=== PATIENT | female | born 1990 | race Caucasian/White ===

== ENCOUNTER 2019-07-05 14:50 | Emergency (ER) | payer BC, OTHER ==
[2019-07-05] MEDS ORDERED: Diphtheria,Pertussis(Acell),Tetanus Vaccine 0.5 ML Syringe IM ONE (15:33)
[2019-07-05] MEDS ORDERED: Amoxicillin/Clavulanate K 875-125 MG Tab PO ONE (15:35)
--- NOTE | 2019-07-05 15:36 | EDM.PDOC ---
ED HPI GENERAL MEDICAL PROBLEM - General Chief Complaint: Body Fluid Exposure Stated Complaint: BITE FROM RESIDENT Time Seen by Provider: 07/05/19 14:57 Source of Information: Reports: Patient, RN Notes Reviewed History Limitations: Reports: No Limitations - History of Present Illness INITIAL COMMENTS - FREE TEXT/NARRATIVE: Patient is a 28-year-old female who presents to the ED for evaluation of a bite from a longterm resident. Patient works at [email or web address], and was bit on her right hand by a resident she was working with at around 7:40 this morning. She states that this did break the skin and bleed initially, she put antibiotic cream and a bandage on it, but her packing and wrapping supervisor directed her to go to the ER for further treatment and testing of the wound. Patient was not made aware that the resident had any sort of communicable diseases like hepatitis or HIV. The patient's boss states however that she should be checked. The patient does not have any sudden numbness or tingling distal to the bite, she has good range of motion in the hand. - Related Data Allergies Allergy/AdvReac Type Severity Reaction Status Date / Time No Known Allergies Allergy Verified 07/05/19 14:58 Home Meds: Home Meds Amoxicillin/Clavulanate K [Augmentin 875-125 MG] 1 tab PO BID #13 tablet [Rx] Past Medical History - Past Surgical History HEENT Surgical History: Reports: Adenoidectomy, Tonsillectomy Social & Family History - Tobacco Use Smoking Status *Q: Current Every Day Smoker Years of Tobacco use: 14 Packs/Tins Daily: 0.5 - Caffeine Use Caffeine Use: Reports: Soda, Tea - Recreational Drug Use Recreational Drug Use: No ED ROS GENERAL - Review of Systems Review Of Systems: See Below Constitutional: Reports: No Symptoms HEENT: Reports: No Symptoms Respiratory: Reports: No Symptoms Cardiovascular: Reports: No Symptoms Endocrine: Reports: No Symptoms GI/Abdominal: Reports: No Symptoms : Reports: No Symptoms Musculoskeletal: Reports: No Symptoms Skin: Reports: Wound (5mm wound noted to MCP of 2nd digit. No active bleeding.) Neurological: Reports: No Symptoms Psychiatric: Reports: No Symptoms Hematologic/Lymphatic: Reports: No Symptoms Immunologic: Reports: No Symptoms ED EXAM, GENERAL - Physical Exam Exam: See Below Exam Limited By: No Limitations General Appearance: Alert, WD/WN, No Apparent Distress Throat/Mouth: Normal Inspection, Normal Lips, Normal Teeth, Normal Gums, Normal Oropharynx, Normal Voice, No Airway Compromise Head: Atraumatic, Normocephalic Neck: Normal Inspection Respiratory/Chest: No Respiratory Distress, Lungs Clear, Normal Breath Sounds, No Accessory Muscle Use, Chest Non-Tender Cardiovascular: Normal Peripheral Pulses, Regular Rate, Rhythm, No Murmur Peripheral Pulses: 3+: Radial (L), Radial (R) GI/Abdominal: Normal Bowel Sounds, Soft, Non-Tender, No Distention, No Mass Extremities: Normal Inspection, Normal Capillary Refill Neurological: Alert, Oriented, Normal Cognition, No Motor/Sensory Deficits Psychiatric: Normal Affect, Normal Mood Skin Exam: Warm, Dry, Normal Color, No Rash, Wound/Incision (5mm wound noted to MCP of 2nd digit. No active bleeding.) Course - Vital Signs Last Recorded V/S: Last Vital Signs Temp 97.4 F 07/05/19 14:55 Pulse 102 H 07/05/19 14:55 Resp BP 135/95 H 07/05/19 14:55 Pulse Ox 98 07/05/19 14:55 - Orders/Labs/Meds Orders: Active Orders 24 hr Category Date Time Status Vaccines to be Administered [RC] PER UNIT ROUTINE Care 07/05/19 15:33 Active Labs: Laboratory Tests 07/05/19 07/05/19 Range/Units 15:50 15:50 Hep Bs Antigen Nonreactive (NONREACTIVE) Hepatitis C Antibody Negative (NEGATIVE) HIV-1 Ab Rapid Screen Negative (NEGATIVE) Meds: Medications Discontinued Medications Generic Name Dose Route Start Last Admin Trade Name Peace PRN Reason Stop Dose Admin Amoxicillin/Clavulanate Potassium 1 tab 07/05/19 15:35 07/05/19 16:09 Augmentin 875 Mg/125 Mg PO 07/05/19 15:36 1 tab ONETIME ONE Administration Diphtheria/Tetanus/Acell Pertussis 0.5 ml 07/05/19 15:33 07/05/19 16:06 Adacel IM 07/05/19 15:34 0.5 ml .ONCE ONE Administration - Re-Assessments/Exams Free Text/Narrative Re-Assessment/Exam: 07/05/19 15:56 Patient resents to the ED for evaluation of a human bite wounds. She was directed by her boss to be evaluated for hepatitis and otherwise. I did order hep C, hep B testing, and HIV testing to be done today, however she will likely need to have these repeated in a short amount of time to make sure that these are in fact negative. She was not sure of her tetanus booster, so I did update this and give her her first tablet of Augmentin for management today. Patient will have the rest of the antibiotic sent to clinic pharmacy per her choosing, she may pick these up tomorrow and start taking them as directed. 07/05/19 17:37 HIV and hep C are back and are negative. Hep B is still pending. 07/06/19 16:26 Hep B surface antigen was nonreactive. I will call the patient with results. Departure - Departure Time of Disposition: 17:38 Disposition: Home, Self-Care 01 Condition: Fair Clinical Impression: Human bite causing injury Qualifiers: Encounter type: initial encounter Qualified Code(s): W50.3XXA - Accidental bite by another person, initial encounter - Discharge Information *PRESCRIPTION DRUG MONITORING PROGRAM REVIEWED*: No *COPY OF PRESCRIPTION DRUG MONITORING REPORT IN PATIENT LEYDA: No Prescriptions: Amoxicillin/Clavulanate K [Augmentin 875-125 MG] 1 tab PO BID #13 tablet Instructions: Body Fluid Exposure Information, Human Bite, [id number] Referrals: PCP,None [Primary Care Provider] - Forms: ED Department Discharge Additional Instructions: You were evaluated in the ER today for the bite sustained from a resident at your job. You were started on a course of antibiotics, Augmentin, please take one tab twice a day for the next 7 days, or until gone. These were electronically prescribed to the clinic pharmacy per your choosing. Augmentin is known to cause diarrhea. Please start taking a probiotic while on this medication. Your laboratory evaluation today involved hepatitis C, hepatitis B, and HIV testing. The hepatitis C and HIV were both negative at today's visit, the hep B is still pending, and this will be run tomorrow, you will be called and made notified of the results when this test has been run. I have a high suspicion that this will also be negative. Recommend that you repeat testing in a few months time with your primary care physician, or occupational health through your job. Please return to the ED if your symptoms change or worsen. - My Orders Last 24 Hours: My Active Orders 07/05/19 15:33 Vaccines to be Administered [RC] PER UNIT ROUTINE - Assessment/Plan Last 24 Hours: My Active Orders 07/05/19 15:33 Vaccines to be Administered [RC] PER UNIT ROUTINE
== END 2019-07-05 18:00 | disposition home or self-care (01) ==
LOC: JD.ED 14:50
DX: S61.451A Open bite of right hand, initial encounter (principal); F17.210 Nicotine dependence, cigarettes, uncomplicated; Z23 Encounter for immunization; W50.3XXA Accidental bite by another person, initial encounter; Y93.89 Activity, other specified; Y92.129 Unspecified place in nursing home as the place of occurrence of the external cause; Y99.0 Civilian activity done for income or pay
CPT/HCPCS: 36415; 86803; 87340; 87449; 90471; 90700; 99283; A9270; G0433

== ENCOUNTER 2019-12-30 09:46 | Emergency (ER) | payer BC, OTHER ==
--- NOTE | 2019-12-30 11:30 | EDM.PDOC ---
ED HPI GENERAL MEDICAL PROBLEM - General Chief Complaint: Respiratory Problem Stated Complaint: SOB,COUGH, SHARP PAIN IN CHEST WHEN COUGHS Time Seen by Provider: 12/30/19 11:11 Source of Information: Reports: Patient History Limitations: Reports: No Limitations - History of Present Illness INITIAL COMMENTS - FREE TEXT/NARRATIVE: Patient is a 29-year-old female who presents with complaints of cough, chills, and shortness of breath. She states the cough began about 3 days ago. She has had chills intermittently but no known fever. She was started to become slightly short of breath today. She has no underlying lung condition such as asthma. Patient works in a custodial facility. She denies any nausea, vomiting, or diarrhea. Chest Pain Score (Numeric/FACES): 8 - Related Data Allergies Allergy/AdvReac Type Severity Reaction Status Date / Time No Known Allergies Allergy Verified 12/30/19 10:13 Home Meds: Home Meds Albuterol [Ventolin HFA] 2 puff .XX Q4H PRN #1 inhaler 12/30/19 [Rx] Codeine Phosphate/Guaifenesin [Guaifen-Codeine 100-10 mg/5 ml] 10 ml PO Q4H PRN #150 ml 12/30/19 [Rx] Norethindrone-E.estradiol-Iron [Junel Fe 1 MG-20 MCG] 1 tab PO DAILY 12/30/19 [ History] Past Medical History - Past Surgical History HEENT Surgical History: Reports: Adenoidectomy, Tonsillectomy Social & Family History - Tobacco Use Smoking Status *Q: Current Every Day Smoker Years of Tobacco use: 15 Packs/Tins Daily: 0.5 - Caffeine Use Caffeine Use: Reports: Soda, Tea - Recreational Drug Use Recreational Drug Use: No ED ROS GENERAL - Review of Systems Review Of Systems: Comprehensive ROS is negative, except as noted in HPI. ED EXAM, GENERAL - Physical Exam Exam: See Below Exam Limited By: No Limitations General Appearance: Alert, WD/WN, No Apparent Distress Respiratory/Chest: No Respiratory Distress, Lungs Clear, Normal Breath Sounds, No Accessory Muscle Use, Chest Non-Tender Cardiovascular: Normal Peripheral Pulses, Regular Rate, Rhythm, No Edema, No Gallop, No JVD, No Murmur, No Rub Neurological: Alert, Oriented, CN II-XII Intact, Normal Cognition, Normal Gait, Normal Reflexes, No Motor/Sensory Deficits Psychiatric: Normal Affect, Normal Mood Skin Exam: Warm, Dry, Intact, Normal Color, No Rash Course - Vital Signs Last Recorded V/S: Last Vital Signs Temp 97.8 F 12/30/19 10:11 Pulse 88 12/30/19 10:11 Resp 18 12/30/19 10:11 BP 112/92 H 12/30/19 10:11 Pulse Ox 100 12/30/19 10:11 - Orders/Labs/Meds Orders: Active Orders 24 hr Category Date Time Status CORONAVIRUS COVID-19 PCR PHL [REF] Stat Lab 12/30/19 12:00 Received - Re-Assessments/Exams Free Text/Narrative Re-Assessment/Exam: 12/30/19 11:27 Chest x-ray was normal. Oxygen saturations have been 98 to 100% on room air. Lung sounds are clear. We will swab the patient for coronavirus today. We will discharge her home with an albuterol inhaler as well as cough syrup. Recommended no work until symptom free for 3 days. Educated to return to ER as needed. Discharge instructions as documented. Departure - Departure Time of Disposition: 11:28 Disposition: Home, Self-Care 01 Condition: Fair Clinical Impression: Viral respiratory infection - Discharge Information *PRESCRIPTION DRUG MONITORING PROGRAM REVIEWED*: No *COPY OF PRESCRIPTION DRUG MONITORING REPORT IN PATIENT LEYDA: No Prescriptions: Albuterol [Ventolin HFA] 2 puff .XX Q4H PRN #1 inhaler PRN Reason: Shortness Of Breath Codeine Phosphate/Guaifenesin [Guaifen-Codeine 100-10 mg/5 ml] 10 ml PO Q4H PRN #150 ml PRN Reason: Cough Instructions: Viral Respiratory Infection, [id number] Referrals: PCP,None [Primary Care Provider] - Forms: ED Department Discharge, ED Return to Work/School Form Additional Instructions: You were seen in the emergency department today for cough, chills, shortness of breath. Chest x-ray was completed and was negative for any signs of pneumonia. Your oxygen saturations were 98 to 100% while in the emergency department which is very good. You have been swabbed for the coronavirus today. You will be notified when these results are available. Recommend that you go home and self quarantine until you have been symptom-free for 3 days, regardless of what the results of the coronavirus test show. A prescription for an albuterol inhaler and cough syrup has been sent to clinic pharmacy. Uses medications as prescribed. Recommend that you rest and increase your fluid intake. If your symptoms should worsen, please not hesitate to return to the emergency department. Sepsis Event Note - Evaluation Sepsis Screening Result: No Definite Risk - Focused Exam Vital Signs: Vital Signs Temp Pulse Resp BP Pulse Ox 12/30/19 10:11 97.8 F 88 18 112/92 H 100 Date Exam was Performed: 12/30/19 Time Exam was Performed: 19:26 - My Orders Last 24 Hours: My Active Orders 12/30/19 12:00 CORONAVIRUS COVID-19 PCR PHL [REF] Stat - Assessment/Plan Last 24 Hours: My Active Orders 12/30/19 12:00 CORONAVIRUS COVID-19 PCR PHL [REF] Stat
--- NOTE | 2019-12-30 11:35 | CR ---
Chest: Portable view of the chest was obtained. Comparison: No prior chest imaging is available. Heart size and mediastinum are normal. Lungs are clear with no acute parenchymal change. Bony structures are grossly intact. Impression: 1. Nothing acute is appreciated on portable chest x-ray. Diagnostic code #1 This report was dictated in MDT
== END 2019-12-30 12:20 | disposition home or self-care (01) ==
LOC: JD.ED 09:46
DX: J98.8 Other specified respiratory disorders (principal); F17.210 Nicotine dependence, cigarettes, uncomplicated
CPT/HCPCS: 36415; 71045; 71045-26; 99283; 99285-25; U0002

== ENCOUNTER 2020-01-06 18:43 | Emergency (ER) | payer BC ==
--- NOTE | 2020-01-06 19:07 | EDM.PDOC ---
ED HPI GENERAL MEDICAL PROBLEM - General Chief Complaint: Respiratory Problem Stated Complaint: COUGH,SOB,FEELS COLD Time Seen by Provider: 01/06/20 19:00 Source of Information: Reports: Patient History Limitations: Reports: No Limitations - History of Present Illness INITIAL COMMENTS - FREE TEXT/NARRATIVE: TRIAGE NOTE -- Pt. here for dyspnea and chills. Started last saturday and had tested which came back negative. Has a dry cough. No fever. As above. Was seen 1 week ago with similar symptoms. Coronavirus test was negative. She has continued to have a cough and feel unwell. There has been no sputum. No fever. 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 She has not taken any medication to moderate symptoms as far as we can tell. Risk factor is cigarette smoking but she has not felt like smoking in recent days. Chest Pain Score (Numeric/FACES): 5 - Related Data Allergies Allergy/AdvReac Type Severity Reaction Status Date / Time No Known Allergies Allergy Verified 01/06/20 18:56 Home Meds: Home Meds Codeine Phosphate/Guaifenesin [Guaifen-Codeine 100-10 mg/5 ml] 10 ml PO Q4H PRN #150 ml 12/30/19 [Rx] Norethindrone-E.estradiol-Iron [Junel Fe 1 MG-20 MCG] 1 tab PO DAILY 12/30/19 [ History] Albuterol [Ventolin HFA] 2 puff INH Q4H PRN 01/06/20 [History] Past Medical History - Past Surgical History HEENT Surgical History: Reports: Adenoidectomy, Tonsillectomy Social & Family History - Tobacco Use Smoking Status *Q: Current Every Day Smoker Years of Tobacco use: 15 Packs/Tins Daily: 0.5 - Caffeine Use Caffeine Use: Reports: Soda - Recreational Drug Use Recreational Drug Use: No ED ROS GENERAL - Review of Systems Review Of Systems: Comprehensive ROS is negative, except as noted in HPI. ED EXAM, GENERAL - Physical Exam Exam: See Below Exam Limited By: No Limitations General Appearance: Alert, WD/WN, No Apparent Distress Eye Exam: Bilateral Eye: EOMI, PERRL Ears: Normal External Exam Nose: Normal Inspection Throat/Mouth: Normal Inspection Head: Atraumatic, Normocephalic Neck: Supple, Non-Tender Respiratory/Chest: No Respiratory Distress, Lungs Clear, Normal Breath Sounds, No Accessory Muscle Use Cardiovascular: Regular Rate, Rhythm GI/Abdominal: Soft, Non-Tender Back Exam: Normal Inspection Extremities: Normal Inspection Neurological: Alert, Oriented Psychiatric: Normal Affect Skin Exam: Warm, Dry Lymphatic: No Adenopathy Course - Vital Signs Last Recorded V/S: Last Vital Signs Temp 36.5 C 01/06/20 20:02 Pulse 100 01/06/20 20:02 Resp 18 01/06/20 20:02 BP 118/62 01/06/20 20:02 Pulse Ox 99 01/06/20 20:02 - Orders/Labs/Meds Labs: Laboratory Tests 01/06/20 Range/Units 20:00 Urine HCG, Qual Negative (NEGATIVE) - Re-Assessments/Exams Free Text/Narrative Re-Assessment/Exam: 01/06/20 21:59 The patient's physical exam is unremarkable. There has been no fever. Normal vital signs. Oxygen saturation 100% on room air. Chest x-ray is negative for any acute process. Same as a week ago. COVID test negative a week ago. Has no fever no point in repeating the test tonight. Patient obviously has a significant viral process at this point and needs to stay off work and not put others at risk. She may return to usual activities after she has been asymptomatic for 3 days. Patient was reassured. She needs not to expose others. Remain at home for the time being. Precautions for return to ER, fevers, worsening of symptoms, shortness of breath etc. Departure - Departure Time of Disposition: 22:04 Disposition: Home, Self-Care 01 Condition: Good Clinical Impression: Nonspecific syndrome suggestive of viral illness - Discharge Information Instructions: Viral Respiratory Infection, [id number] Referrals: PCP,None [Primary Care Provider] - Forms: ED Department Discharge Additional Instructions: Despite your troubling symptoms that brought you to the emergency department your physical exam is unremarkable. Chest x-ray does not show any evidence of an infiltrate or other acute process. Vital signs are all normal. Your blood oxygen level is completely normal. You do have a viral illness of some consequence and you should avoid exposing anyone until you have been asymptomatic for at least 3 days. You are to remain off work for the present time. Return to ER for any letitia fevers, worsening respiratory symptoms, letitia shortness of breath. Sepsis Event Note - Evaluation Sepsis Screening Result: No Definite Risk - Focused Exam Vital Signs: Vital Signs Temp Pulse Resp BP Pulse Ox 01/06/20 20:02 36.5 C 100 18 118/62 99 01/06/20 18:51 36.8 C 95 16 115/83 100 Date Exam was Performed: 01/06/20 Time Exam was Performed: 21:53
--- NOTE | 2020-01-06 21:32 | CR ---
Chest: Portable view of the chest was obtained. Comparison: Prior chest x-ray of 12/30/19. Heart size and mediastinum are normal. Lungs are clear with no acute parenchymal change. Bony structures are grossly intact. Impression: 1. Nothing acute is seen on portable chest x-ray. Diagnostic code #1 Study was dictated in MDT
== END 2020-01-06 22:21 | disposition home or self-care (01) ==
LOC: JD.ED 18:43
DX: B34.9 Viral infection, unspecified (principal); F17.210 Nicotine dependence, cigarettes, uncomplicated
CPT/HCPCS: 71045; 71045-26; 81025; 99282; 99285-25

== ENCOUNTER 2022-08-15 13:09 | Emergency (ER) | payer BC ==
[2022-08-15] MEDS ORDERED: Sodium Chloride 0.9% 1,000 ML IV ONE (14:30)
[2022-08-15] MEDS ORDERED: Ondansetron 4 MG in Sodium Chloride 0.9% 50 ML IV ONE (14:59)
[2022-08-15] MEDS ORDERED: Ondansetron 4 MG/2 ML SDV ONE (15:08)
[2022-08-15] MEDS ORDERED: Ondansetron 4 MG/2 ML SDV IVPUSH ONE (15:17)
[2022-08-15 15:27] LABS: CORONAVIRUS COVID-19 NAA NEGATIVE (NEGATIVE)
== END 2022-08-15 18:44 | disposition home or self-care (01) ==
LOC: JD.ED 13:09
DX: R25.1 Tremor, unspecified (principal); B34.9 Viral infection, unspecified; F17.210 Nicotine dependence, cigarettes, uncomplicated; Z20.822 Contact with and (suspected) exposure to COVID-19
CPT/HCPCS: 0241U; 36415; 80053; 81003; 81025; 82947; 83690; 85025; 96361; 96374; 99284; J2405; J7030

== ENCOUNTER 2023-08-09 03:48 | Emergency (ER) | payer BC ==
[2023-08-09] MEDS ORDERED: Acetaminophen 325 MG Tab PO ONE (04:20)
== END 2023-08-09 05:52 | disposition home or self-care (01) ==
LOC: JD.ED 03:48
DX: S80.01XA Contusion of right knee, initial encounter (principal); X50.9XXA Other and unspecified overexertion or strenuous movements or postures, initial encounter; Z79.899 Other long term (current) drug therapy; Y92.511 Restaurant or cafe as the place of occurrence of the external cause
CPT/HCPCS: 73562; 99283; A9270; 99282

== ENCOUNTER 2023-12-11 11:15 | Emergency (ER) | payer BC ==
[2023-12-11] MEDS: Ondansetron 4 MG/2 ML SDV IVPUSH ONE (11:51)
[2023-12-11] MEDS: Ketorolac 30 MG/ML SDV IVPUSH ONE (11:51)
[2023-12-11] MEDS: Sodium Chloride 0.9% 10 ML Syringe FLUSH PRN (11:55)
[2023-12-11 12:00] LABS: BASOPHILS ABSOLUTE AUTO 0.1 K/mm3 (0.0-0.2); BASOPHILS PERCENT AUTO 0.5 % (0.0-1.0); EOSINOPHILS ABSOLUTE AUTO 0.3 K/mm3 (0.0-0.4); EOSINOPHILS PERCENT AUTO 2.4 % (0.0-6.0); HEMATOCRIT 40.3 % (37.0-47.0); HEMOGLOBIN 13.5 gm/dl (12.0-16.0); IMMATURE GRAN ABSOLUTE AUTO 0.03 K/mm3 (0.00-0.05); IMMATURE GRAN PERCENT AUTO 0.3 % (0.0-0.4); LYMPHOCYTES ABSOLUTE AUTO 3.1 K/mm3 (1.0-4.8); LYMPHOCYTES PERCENT AUTO 29.7 % (24.0-44.0); MEAN CORPUSCULAR HEMOGLOBIN 32.8 pg (28.0-32.0); MEAN CORPUSCULAR HGB CONC 33.5 g/dl (32.0-36.0); MEAN CORPUSCULAR VOLUME 98.1 fl (83.0-99.0); MEAN PLATELET VOLUME 9.6 fl (9.4-12.3); MONOCYTES ABSOLUTE AUTO 0.4 K/mm3 (0.0-0.8); MONOCYTES PERCENT AUTO 4.1 % (0.0-8.0); NEUTROPHILS ABSOLUTE AUTO 6.6 K/mm3 (1.8-7.7); PLATELET COUNT,PLT 346 K/mm3 (150-400); RED BLOOD CELL COUNT 4.11 M/mm3 (4.10-5.30); WHITE BLOOD CELL COUNT,WBC 10.49 K/mm3 (3.9-11.3)
[2023-12-11 12:24] LABS: ALBUMIN 3.7 g/dl (3.4-5.0); BILIRUBIN TOTAL 0.2 mg/dL (0.2-1.0); C-REACTIVE PROTEIN 1.48 mg/dL (<0.30); CALCIUM 8.9 mg/dL (8.5-10.1); CREATININE 0.9 mg/dL (0.55-1.02); EST CRCL DRUG DOSING (CG) 67.09 mL/min; PROTEIN TOTAL,TP 7.6 g/dl (6.4-8.2)
[2023-12-11] MEDS: Alum Hydrox/Mag Hydrox/Simeth 30 ML, Lidocaine 2% 15 ML PO ONE (12:33)
[2023-12-11 12:42] LABS: CORONAVIRUS COVID-19 NAA NEGATIVE (NEGATIVE); INFLUENZA A NAA NEGATIVE (NEGATIVE); RESPIRATORY SYNCYTIAL VIR NAA NEGATIVE (NEGATIVE)
[2023-12-11 13:01] LABS: ANION GAP 11.6 (5-15); POTASSIUM,K 3.6 mEq/L (3.5-5.1)
[2023-12-11] MEDS: Famotidine 20 MG/2 ML SDV IVPUSH ONE (13:26)
[2023-12-11] MEDS: Sucralfate Suspension 1 GM/10 ML Cup PO ONE (13:27)
[2023-12-11] MEDS: HYDROmorphone 0.5 MG/0.5 ML Syringe IVPUSH ONE (13:27)
[2023-12-11 13:45] LABS: APPEARANCE,URINE CLEAR (Clear); BILIRUBIN,URINE NEGATIVE (Negative); COLOR,URINE YELLOW (Yellow); GLUCOSE,URINE NEGATIVE (Negative); KETONES,URINE TRACE (Negative); LEUKOCYTE ESTERASE,URINE 2+ (Negative); NITRITE,URINE NEGATIVE (Negative); OCCULT BLOOD,URINE NEGATIVE (Negative); PH,URINE 6.5 (5.0-8.0); PROTEIN,URINE 1+ (Negative); UROBILINOGEN,URINE 0.2 (0.2-1.0)
[2023-12-11 13:59] LABS: BACTERIA,URINE MANY /hpf (FEW); MUCUS,URINE MANY /hpf (FEW); RBC,URINE 0-5 /hpf (0-5)
== END 2023-12-11 15:13 | disposition home or self-care (01) ==
LOC: JD.ED 11:15
DX: K21.9 Gastro-esophageal reflux disease without esophagitis (principal); F17.210 Nicotine dependence, cigarettes, uncomplicated; Z79.899 Other long term (current) drug therapy; Z86.19 Personal history of other infectious and parasitic diseases; Z86.16 Personal history of COVID-19
CPT/HCPCS: 0241U; 36415; 71046; 80053; 81001; 84484; 85025; 85379; 86140; 87086; 93005; 96374; 96375; 99285; A9270; J1170; J1885; J2405; J3490; 93010; 99284

== ENCOUNTER 2024-02-26 11:28 | Emergency (ER) | payer BC ==
[2024-02-26] MEDS: Ketorolac 30 MG/ML SDV IM ONE (12:28)
[2024-02-26] MEDS: Acetaminophen 325 MG Tab PO ONE (14:21)
== END 2024-02-26 14:20 | disposition home or self-care (01) ==
LOC: JD.ED 11:28
DX: T74.91XA Unspecified adult maltreatment, confirmed, initial encounter (principal); S02.2XXA Fracture of nasal bones, initial encounter for closed fracture; S09.90XA Unspecified injury of head, initial encounter; F17.210 Nicotine dependence, cigarettes, uncomplicated; Z86.16 Personal history of COVID-19; Z79.899 Other long term (current) drug therapy; Y04.8XXA Assault by other bodily force, initial encounter
CPT/HCPCS: 70450; 70486; 71250; 72125; 72128; 72131; 96372; 99284; A9270; J1885

== ENCOUNTER 2025-03-30 23:23 | Emergency (ER) | payer BC ==
[2025-03-31] MEDS: Fluorescein 1 MG Ophth Strip EYELF ONE (01:06)
[2025-03-31] MEDS: Fluorescein 1 MG Ophth Strip ONE (01:06)
== END 2025-03-31 01:06 | disposition home or self-care (01) ==
LOC: JD.ED 23:23
DX: S05.02XA Injury of conjunctiva and corneal abrasion without foreign body, left eye, initial encounter (principal); F17.210 Nicotine dependence, cigarettes, uncomplicated; Z79.899 Other long term (current) drug therapy; Z86.16 Personal history of COVID-19; X58.XXXA Exposure to other specified factors, initial encounter; Y93.89 Activity, other specified
CPT/HCPCS: 99283; A9270; J3490

== ENCOUNTER 2025-04-02 16:32 | Inpatient (IN) | payer BC ==
[2025-04-02] MEDS ORDERED: Sodium Chloride 0.9% 10 ML Syringe FLUSH PRN (16:57)
[2025-04-02 17:03] LABS: BASOPHILS ABSOLUTE AUTO 0.0 K/mm3 (0.0-0.2); BASOPHILS PERCENT AUTO 0.4 % (0.0-1.0); EOSINOPHILS ABSOLUTE AUTO 0.1 K/mm3 (0.0-0.4); EOSINOPHILS PERCENT AUTO 1.6 % (0.0-6.0); IMMATURE GRAN ABSOLUTE AUTO 0.02 K/mm3 (0.00-0.05); IMMATURE GRAN PERCENT AUTO 0.3 % (0.0-0.4); LYMPHOCYTES ABSOLUTE AUTO 2.1 K/mm3 (1.0-4.8); LYMPHOCYTES PERCENT AUTO 28.2 % (24.0-44.0); MEAN PLATELET VOLUME 9.4 fl (9.4-12.3); MONOCYTES ABSOLUTE AUTO 0.4 K/mm3 (0.0-0.8); MONOCYTES PERCENT AUTO 4.9 % (0.0-8.0); NEUTROPHILS ABSOLUTE AUTO 4.7 K/mm3 (1.8-7.7); NEUTROPHILS PERCENT AUTO 64.6 % (41.0-71.0); NRBC ABSOLUTE 0.00 (0.00-0.02); NRBC PERCENT 0.0 % (0.0-0.2); PLATELET COUNT,PLT 246 K/mm3 (150-400); RED BLOOD CELL COUNT 4.52 M/mm3 (4.10-5.30); WHITE BLOOD CELL COUNT,WBC 7.31 K/mm3 (3.9-11.3)
[2025-04-02] MEDS: Ondansetron 4 MG/2 ML SDV IVPUSH ONE (17:05)
[2025-04-02] MEDS: fentaNYL 100 MCG/2 ML SDV IVPUSH ONE ×2 (17:05→17:31)
[2025-04-02] MEDS ORDERED: Naloxone 0.4 MG/ML SDV IVPUSH PRN ×3 (17:26→18:51)
[2025-04-02 17:30] LABS: A/G RATIO 1.3 (1-2); ASPARTATE AMNIOTRANSFERASE,AST 341 U/L (15-37); BILIRUBIN TOTAL 1.0 mg/dL (0.2-1.0); BLOOD UREA NITROGEN,BUN 8 mg/dL (7-18); CARBON DIOXIDE,CO2 26 mEq/L (21-32); CHLORIDE,CL 101 mEq/L (98-107); CREATININE 0.5 mg/dL (0.55-1.02); EST CRCL DRUG DOSING (CG) 115.13 mL/min; ESTIMATED GFR 126 mL/min (>60); GLUCOSE RANDOM 146 mg/dL (70-99); POTASSIUM,K 2.7 mEq/L (3.5-5.1); PROTEIN TOTAL,TP 7.3 g/dl (6.4-8.2); SODIUM,NA 137 mEq/L (136-145)
[2025-04-02 17:31] LABS: ALANINE AMINOTRANSFERASE,ALT 1302 U/L (14-59); HCG QUANTITATIVE < 1.0 mIU/mL
[2025-04-02] MEDS: Sodium Chloride 0.9% 10 ML Syringe FLUSH ONE (17:49)
[2025-04-02] MEDS: Iopamidol 612 MG/ML 100 ML Bottle IVPUSH ONE (17:49)
[2025-04-02] MEDS: diphenhydrAMINE 50 MG/ML SDV IVPUSH ONE (18:26)
[2025-04-02] MEDS ORDERED: Ondansetron 4 MG/2 ML SDV IVPUSH PRN (18:51)
[2025-04-02] MEDS ORDERED: LORazepam 2 MG/ML SDV IVPUSH PRN (18:53)
[2025-04-02 19:25] LABS: APPEARANCE,URINE CLEAR (Clear); GLUCOSE,URINE NEGATIVE (Negative); OCCULT BLOOD,URINE NEGATIVE (Negative)
[2025-04-02] MEDS: LORazepam 2 MG/ML SDV IVPUSH PRN (21:10)
[2025-04-02] MEDS: Magnesium Sulfat/D5W 1GM/100ML 1 GM in Premix Bag 1 BAG IV SCH (21:13)
[2025-04-03] MEDS ORDERED: Carboxymethylcellulose Sodium 1% Ophth Gel 15 ML Bottle EYEBOTH PRN ×2 (00:16→00:23)
[2025-04-03] MEDS: Carboxymethylcellulose Sodium 1% Ophth Gel 15 ML Bottle EYEBOTH PRN (00:57)
[2025-04-03 05:52] LABS: BASOPHILS ABSOLUTE AUTO 0.0 K/mm3 (0.0-0.2); BASOPHILS PERCENT AUTO 0.5 % (0.0-1.0); EOSINOPHILS ABSOLUTE AUTO 0.2 K/mm3 (0.0-0.4); EOSINOPHILS PERCENT AUTO 2.9 % (0.0-6.0); IMMATURE GRAN ABSOLUTE AUTO 0.03 K/mm3 (0.00-0.05); IMMATURE GRAN PERCENT AUTO 0.4 % (0.0-0.4); LYMPHOCYTES ABSOLUTE AUTO 2.3 K/mm3 (1.0-4.8); LYMPHOCYTES PERCENT AUTO 31.3 % (24.0-44.0); MEAN PLATELET VOLUME 9.6 fl (9.4-12.3); MONOCYTES ABSOLUTE AUTO 0.3 K/mm3 (0.0-0.8); MONOCYTES PERCENT AUTO 3.4 % (0.0-8.0); NEUTROPHILS ABSOLUTE AUTO 4.5 K/mm3 (1.8-7.7); NEUTROPHILS PERCENT AUTO 61.5 % (41.0-71.0); NRBC ABSOLUTE 0.00 (0.00-0.02); NRBC PERCENT 0.0 % (0.0-0.2); PLATELET COUNT,PLT 186 K/mm3 (150-400); RED BLOOD CELL COUNT 3.54 M/mm3 (4.10-5.30); WHITE BLOOD CELL COUNT,WBC 7.35 K/mm3 (3.9-11.3)
[2025-04-03 06:36] LABS: A/G RATIO 1.2 (1-2); ASPARTATE AMNIOTRANSFERASE,AST 408.0 U/L (15-37); BILIRUBIN TOTAL 1.1 mg/dL (0.2-1.0); BLOOD UREA NITROGEN,BUN 7.0 mg/dL (7-18); CARBON DIOXIDE,CO2 23.0 mEq/L (21-32); CHLORIDE,CL 109.0 mEq/L (98-107); CREATININE 0.4 mg/dL (0.55-1.02); EST CRCL DRUG DOSING (CG) 149.54 mL/min; ESTIMATED GFR 133.0 mL/min (>60); GLUCOSE RANDOM 97.0 mg/dL (70-99); PHOSPHORUS 3.1 mg/dL (2.6-4.7); POTASSIUM,K 3.1 mEq/L (3.5-5.1); PROTEIN TOTAL,TP 5.6 g/dl (6.4-8.2); SODIUM,NA 142.0 mEq/L (136-145)
[2025-04-03 06:45] LABS: ALANINE AMINOTRANSFERASE,ALT 1103.0 U/L (14-59)
[2025-04-03] MEDS: Potassium Chloride 20 MEQ Tab.ER PO ONE (09:17)
[2025-04-03] MEDS: Magnesium Sulfat/D5W 1GM/100ML 1 GM in Premix Bag 1 BAG IV ONE (09:17)
[2025-04-03] MEDS: Carboxymethylcellulose Sodium 1% Ophth Gel 15 ML Bottle EYELF PRN (09:18)
[2025-04-03] MEDS: LORazepam 2 MG/ML SDV IVPUSH PRN ×2 (09:53→23:05)
[2025-04-03] MEDS: Iopamidol 755 Mg/ML 100 ML Bottle IVPUSH ONE (11:29)
[2025-04-03 12:53] LABS: INR 1.24
[2025-04-03] MEDS: Sennosides/Docusate Sodium 50-8.6 MG Tab PO PRN (13:44)
[2025-04-03] MEDS: Lactated Ringers 1,000 ML IV SCH (13:45)
[2025-04-03 13:48] LABS: CHOLESTEROL HDL 37 mg/dL (40-59); CHOLESTEROL LDL DIRECT 32 mg/dL (<100); CHOLESTEROL TOTAL 80 mg/dL (<200)
[2025-04-03 13:49] LABS: HEPATITIS C AB NON-REACTIVE (Non-React)
[2025-04-03 14:32] LABS: IRON,FE 54.0 ug/dL (50-170)
[2025-04-03] MEDS: Ketorolac 30 MG/ML SDV IVPUSH PRN (16:52)
[2025-04-03 18:13] LABS: BUPRENORPHINE SCREEN,URINE NEGATIVE (CUTOFF=10); METHADONE SCREEN, URINE NEGATIVE (CUTOFF=200); METHAMPHETAMINES SCREEN, URINE NEGATIVE (CUTOFF=500); OXYCODONE SCREEN,URINE PRESUMPTIVE POSITIVE (CUT0FF=100); THC SCREEN,URINE 20 NG/ML NEGATIVE (CUTOFF=50)
[2025-04-03 18:30] LABS: AMPHETAMINES SCREEN, URINE NEGATIVE (CUTOFF=500)
[2025-04-04 05:48] LABS: BASOPHILS ABSOLUTE AUTO 0.0 K/mm3 (0.0-0.2); BASOPHILS PERCENT AUTO 0.3 % (0.0-1.0); EOSINOPHILS ABSOLUTE AUTO 0.2 K/mm3 (0.0-0.4); EOSINOPHILS PERCENT AUTO 3.7 % (0.0-6.0); IMMATURE GRAN ABSOLUTE AUTO 0.03 K/mm3 (0.00-0.05); IMMATURE GRAN PERCENT AUTO 0.5 % (0.0-0.4); LYMPHOCYTES ABSOLUTE AUTO 2.9 K/mm3 (1.0-4.8); LYMPHOCYTES PERCENT AUTO 48.1 % (24.0-44.0); MEAN PLATELET VOLUME 9.7 fl (9.4-12.3); MONOCYTES ABSOLUTE AUTO 0.2 K/mm3 (0.0-0.8); MONOCYTES PERCENT AUTO 4.0 % (0.0-8.0); NEUTROPHILS ABSOLUTE AUTO 2.6 K/mm3 (1.8-7.7); NEUTROPHILS PERCENT AUTO 43.4 % (41.0-71.0); NRBC ABSOLUTE 0.00 (0.00-0.02); NRBC PERCENT 0.0 % (0.0-0.2); PLATELET COUNT,PLT 183 K/mm3 (150-400); RED BLOOD CELL COUNT 3.67 M/mm3 (4.10-5.30); WHITE BLOOD CELL COUNT,WBC 5.95 K/mm3 (3.9-11.3)
[2025-04-04 06:54] LABS: A/G RATIO 1.0 (1-2); ASPARTATE AMNIOTRANSFERASE,AST 998.0 U/L (15-37); BILIRUBIN TOTAL 0.7 mg/dL (0.2-1.0); BLOOD UREA NITROGEN,BUN 7.0 mg/dL (7-18); CARBON DIOXIDE,CO2 30.0 mEq/L (21-32); CHLORIDE,CL 108.0 mEq/L (98-107); CREATININE 0.6 mg/dL (0.55-1.02); EST CRCL DRUG DOSING (CG) 99.69 mL/min; ESTIMATED GFR 121.0 mL/min (>60); GLUCOSE RANDOM 88.0 mg/dL (70-99); PHOSPHORUS 3.1 mg/dL (2.6-4.7); POTASSIUM,K 3.5 mEq/L (3.5-5.1); PROTEIN TOTAL,TP 5.4 g/dl (6.4-8.2); SODIUM,NA 141.0 mEq/L (136-145)
[2025-04-04 06:55] LABS: ALANINE AMINOTRANSFERASE,ALT 2216.0 U/L (14-59)
[2025-04-04] MEDS: Magnesium Sulfate 2 GM/50 mL 2 GM in Premix Bag 1 BAG IV ONE (07:39)
[2025-04-04] MEDS: Potassium Chloride 20 MEQ Tab.ER PO ONE (07:40)
[2025-04-04] MEDS: Sennosides/Docusate Sodium 50-8.6 MG Tab PO PRN (07:42)
[2025-04-04 08:22] LABS: INR 1.14
[2025-04-04] MEDS ORDERED: NORETHINDRONE E ESTRADIOL IRON PO SCH (09:00)
[2025-04-04] MEDS: Ondansetron 4 MG/2 ML SDV IVPUSH PRN (09:52)
[2025-04-04] MEDS: Lactated Ringers 1,000 ML IV SCH (12:43)
[2025-04-05 05:56] LABS: BASOPHILS ABSOLUTE AUTO 0.0 K/mm3 (0.0-0.2); BASOPHILS PERCENT AUTO 0.3 % (0.0-1.0); EOSINOPHILS ABSOLUTE AUTO 0.2 K/mm3 (0.0-0.4); EOSINOPHILS PERCENT AUTO 3.3 % (0.0-6.0); IMMATURE GRAN ABSOLUTE AUTO 0.01 K/mm3 (0.00-0.05); IMMATURE GRAN PERCENT AUTO 0.2 % (0.0-0.4); LYMPHOCYTES ABSOLUTE AUTO 2.7 K/mm3 (1.0-4.8); LYMPHOCYTES PERCENT AUTO 45.1 % (24.0-44.0); MEAN PLATELET VOLUME 10.1 fl (9.4-12.3); MONOCYTES ABSOLUTE AUTO 0.3 K/mm3 (0.0-0.8); MONOCYTES PERCENT AUTO 5.6 % (0.0-8.0); NEUTROPHILS ABSOLUTE AUTO 2.7 K/mm3 (1.8-7.7); NEUTROPHILS PERCENT AUTO 45.5 % (41.0-71.0); NRBC ABSOLUTE 0.00 (0.00-0.02); NRBC PERCENT 0.0 % (0.0-0.2); PLATELET COUNT,PLT 183 K/mm3 (150-400); RED BLOOD CELL COUNT 3.63 M/mm3 (4.10-5.30); WHITE BLOOD CELL COUNT,WBC 6.03 K/mm3 (3.9-11.3)
[2025-04-05 06:13] LABS: INR 1.03
[2025-04-05 06:20] LABS: A/G RATIO 0.9 (1-2); ASPARTATE AMNIOTRANSFERASE,AST 347.0 U/L (15-37); BILIRUBIN TOTAL 1.0 mg/dL (0.2-1.0); BLOOD UREA NITROGEN,BUN 5.0 mg/dL (7-18); CARBON DIOXIDE,CO2 28.0 mEq/L (21-32); CHLORIDE,CL 104.0 mEq/L (98-107); CREATININE 0.4 mg/dL (0.55-1.02); EST CRCL DRUG DOSING (CG) 149.54 mL/min; ESTIMATED GFR 133.0 mL/min (>60); GLUCOSE RANDOM 77.0 mg/dL (70-99); POTASSIUM,K 3.6 mEq/L (3.5-5.1); PROTEIN TOTAL,TP 5.6 g/dl (6.4-8.2); SODIUM,NA 140.0 mEq/L (136-145)
[2025-04-05 07:03] LABS: ALANINE AMINOTRANSFERASE,ALT 1568.0 U/L (14-59)
[2025-04-05] MEDS ORDERED: Potassium Chloride 20 MEQ Tab.ER PO ONE (09:00)
[2025-04-05] MEDS: Gadobenate Dimeglumine 529 MG/ML 15 ML SDV IVPUSH ONE (12:24)
[2025-04-05] MEDS: Potassium Chloride 20 MEQ Tab.ER PO ONE (13:12)
[2025-04-06 09:40] LABS: A/G RATIO 1.0 (1-2); ASPARTATE AMNIOTRANSFERASE,AST 139.0 U/L (15-37); BILIRUBIN TOTAL 1.0 mg/dL (0.2-1.0); BLOOD UREA NITROGEN,BUN 7.0 mg/dL (7-18); CARBON DIOXIDE,CO2 33.0 mEq/L (21-32); CHLORIDE,CL 104.0 mEq/L (98-107); CREATININE 0.7 mg/dL (0.55-1.02); EST CRCL DRUG DOSING (CG) 85.45 mL/min; ESTIMATED GFR 116.0 mL/min (>60); GLUCOSE RANDOM 146.0 mg/dL (70-99); POTASSIUM,K 5.2 mEq/L (3.5-5.1); PROTEIN TOTAL,TP 6.7 g/dl (6.4-8.2); SODIUM,NA 142.0 mEq/L (136-145)
[2025-04-06 09:53] LABS: ALANINE AMINOTRANSFERASE,ALT 1174.0 U/L (14-59)
[2025-04-06 13:46] LABS: HEP B SURFACE AG Negative (Negative)
[2025-04-07 14:47] LABS: HSV SUBTYPE SOURCE Serum; HSV1 SUBTYPE BY PCR Not Detected; HSV2 SUBTYPE BY PCR Not Detected
[2025-04-07 22:47] LABS: CMV QNT BY NAAT, INTERP,PL Not Detected (Not Detected); CMV QNT BY NAAT, IU/ML,PL Not Detected; CMV QNT BY NAAT, LOGIU/ML,PL Not Detected log IU/mL
== END 2025-04-06 15:57 | disposition home or self-care (01) | DRG 815 ==
LOC: JD.ED 16:32 → JD.MS 18:54 → UNDOADMIN 18:54 → EEVIPCON 21:46 → JD.MS 21:46
PROVIDERS: ADMIT Student in an Organized Health Care Education/Training Program; ATTEND Internal Medicine
DX: T74.11XA Adult physical abuse, confirmed, initial encounter (principal); R74.01 Elevation of levels of liver transaminase levels; G43.909 Migraine, unspecified, not intractable, without status migrainosus; K21.9 Gastro-esophageal reflux disease without esophagitis; E87.6 Hypokalemia; K76.0 Fatty (change of) liver, not elsewhere classified; S05.02XD Injury of conjunctiva and corneal abrasion without foreign body, left eye, subsequent encounter; H53.149 Visual discomfort, unspecified; S40.022A Contusion of left upper arm, initial encounter; S06.0XAA Concussion with loss of consciousness status unknown, initial encounter; S40.021A Contusion of right upper arm, initial encounter; I48.91 Unspecified atrial fibrillation; I48.92 Unspecified atrial flutter; Z86.16 Personal history of COVID-19; Z79.899 Other long term (current) drug therapy; Z90.89 Acquired absence of other organs; Y08.89XA Assault by other specified means, initial encounter; Y92.89 Other specified places as the place of occurrence of the external cause
CPT/HCPCS: 36415; 70450; 70450-26; 70486; 70486-26; 70551; 70551-26; 71111; 71111-26; 71275; 71275-26; 72125; 72125-26; 74177; 74177-26; 74183; 74183-26; 80053; 80061; 80143; 80179; 80306; 81003; 82728; 83036; 83540; 83690; 83735; 84100; 84702; 85025; 85610; 86140; 86803; 86850; 86900; 86901; 87340; 87497; 87517; 87529; 93005; 93010; 96361; 96365; 96375; 97161-GP; 97165-GO; 97530-GO; 97530-GP; 99223; 99232; 99239; 99284; 99285-25; A9270-GY; A9577; J1171; J1200; J1650; J1885; J2060; J2405; J2765; J3010; J3475; J3480; J7030; J7120; Q9967

== ENCOUNTER 2025-04-10 20:20 | Emergency (ER) | payer BC ==
[2025-04-10 21:09] LABS: BASOPHILS ABSOLUTE AUTO 0.0 K/mm3 (0.0-0.2); BASOPHILS PERCENT AUTO 0.3 % (0.0-1.0); EOSINOPHILS ABSOLUTE AUTO 0.2 K/mm3 (0.0-0.4); EOSINOPHILS PERCENT AUTO 2.0 % (0.0-6.0); IMMATURE GRAN ABSOLUTE AUTO 0.04 K/mm3 (0.00-0.05); IMMATURE GRAN PERCENT AUTO 0.4 % (0.0-0.4); LYMPHOCYTES ABSOLUTE AUTO 3.0 K/mm3 (1.0-4.8); LYMPHOCYTES PERCENT AUTO 26.7 % (24.0-44.0); MEAN PLATELET VOLUME 9.3 fl (9.4-12.3); MONOCYTES ABSOLUTE AUTO 0.7 K/mm3 (0.0-0.8); MONOCYTES PERCENT AUTO 6.6 % (0.0-8.0); NEUTROPHILS ABSOLUTE AUTO 7.1 K/mm3 (1.8-7.7); NEUTROPHILS PERCENT AUTO 64.0 % (41.0-71.0); NRBC ABSOLUTE 0.00 (0.00-0.02); NRBC PERCENT 0.0 % (0.0-0.2); PLATELET COUNT,PLT 290 K/mm3 (150-400); RED BLOOD CELL COUNT 4.21 M/mm3 (4.10-5.30); WHITE BLOOD CELL COUNT,WBC 11.12 K/mm3 (3.9-11.3)
[2025-04-10 21:25] LABS: APPEARANCE,URINE SLT CLOUDY (Clear); GLUCOSE,URINE NEGATIVE (Negative); OCCULT BLOOD,URINE 2+ (Negative)
[2025-04-10 21:32] LABS: A/G RATIO 1.1 (1-2); ALANINE AMINOTRANSFERASE,ALT 303.0 U/L (14-59); ASPARTATE AMNIOTRANSFERASE,AST 34.0 U/L (15-37); BILIRUBIN TOTAL 0.4 mg/dL (0.2-1.0); BLOOD UREA NITROGEN,BUN 15.0 mg/dL (7-18); CARBON DIOXIDE,CO2 29.0 mEq/L (21-32); CHLORIDE,CL 103.0 mEq/L (98-107); CREATININE 0.6 mg/dL (0.55-1.02); EST CRCL DRUG DOSING (CG) 99.69 mL/min; ESTIMATED GFR 121.0 mL/min (>60); GLUCOSE RANDOM 77.0 mg/dL (70-99); POTASSIUM,K 3.8 mEq/L (3.5-5.1); PROTEIN TOTAL,TP 7.5 g/dl (6.4-8.2); SODIUM,NA 142.0 mEq/L (136-145)
== END 2025-04-10 22:41 | disposition home or self-care (01) ==
LOC: JD.ED 20:20
DX: N30.00 Acute cystitis without hematuria (principal); K59.09 Other constipation; K21.9 Gastro-esophageal reflux disease without esophagitis; F17.210 Nicotine dependence, cigarettes, uncomplicated; Z79.899 Other long term (current) drug therapy; Z86.16 Personal history of COVID-19
CPT/HCPCS: 36415; 74018; 74018-26; 80053; 81001; 81025; 83690; 85025; 99283; 99284